=== PATIENT | male | born 1930 | race Caucasian/White ===

== ENCOUNTER 2017-04-04 14:33 | Emergency (ER) | payer MEDICARE ==
[~2017-04-04] VITALS: Ht 160 cm; Wt 63.0 kg
[~2017-04-04 14:33] MED LIST: ASPI325T PO; CENTTAB9 PO; LOSA25TA31 PO; MECL25 PO; OYST500T77 PO; SIMV20 PO; SULF1TAB47 PO; TOPR25TA2 PO
[2017-04-04 14:35] VITALS: BP 145/65; PULSE 62; RESP 15; TEMP 98.4; O2SAT 98
[2017-04-04] MEDS ORDERED: MECL12.574 PO (15:00)
[2017-04-04] MEDS ORDERED: CALC-131 PO (15:00)
[2017-04-04] MEDS ORDERED: MULT-100 PO (15:00)
[2017-04-04] MEDS ORDERED: ASPI81CH3 CHEW (15:00)
[2017-04-04] MEDS ORDERED: METO25TA6 PO (15:00)
[2017-04-04] MEDS ORDERED: LOSA50TA PO (15:00)
[2017-04-04] MEDS ORDERED: BUSP5TAB PO (15:00)
[2017-04-04] MEDS ORDERED: SIMV40TA PO (15:00)
[2017-04-04] MEDS ORDERED: AVOD0.5C PO (15:00)
--- NOTE | 2017-04-04 15:22 | PD ---
HPI Chief Complaint: Eye Problems/Injury Time Seen by Provider: 14:55 (Ame Randall) Time Seen by Provider: 14:55 (Theron Forde MD) Travel History International Travel<30 days: No Contact w/Intl Traveler<30days: No Traveled to known affect area: No (Ame Randall) International Travel<30 days: No Contact w/Intl Traveler<30days: No Traveled to known affect area: No (Theron Forde MD) History of Present Illness HPI 87-year-old male with known history of macular degeneration in the right eye presents to the emergency department requesting resources and information about retinal specialist in the area. Patient reports he recently moved here from the [facility] area where he was treated for his macular degeneration. He reports he received his last ocular injection by his retinal specialist on March 03 and since that injection he has had intermittent floaters in the right eye. Although he reports he had floaters prior to the injections. He reports no change in frequency or quantity of floaters in the last month. He reports no change in vision of the eye. Due to his insurance he was unable to obtain an appointment with a local retinal specialist. He was hoping the emergency department could refer him to someone who would accept his insurance. He denies eye pain, visual loss, or increase in floaters. (Ame Randall) [facility] Past Medical History Coronary Artery Disease: Yes Diabetes: Yes Patient Takes Glucophage: No Diminished Hearing: No Influenza Vaccination: Yes (Ame Randall) Past Surgical History Coronary Artery Bypass Graft: Yes Genitourinary Surgery: Yes (prostate surgery) Valve Replacement: Yes (Ame Randall) Social History Alcohol Use: Yes (1 day) Tobacco Use: No (Ame Randall) Allergies-Medications (Allergen,Severity, Reaction): Coded Allergies: No Known Allergies (Verified , 04/04/17) Reported Meds & Prescriptions Reported Meds & Active Scripts Active Reported Essential One Daily Multi (Multiple Vitamins W/ Calcium) 400 Mcg Tab 1 Tab PO DAILY Calcium & Magnesium (Calcium-Magnesium) 750-465 Mg Tab 1 Tab PO DAILY Buspirone (Buspirone HCl) 5 Mg Tab 5 Mg PO DAILY Aspirin 81 Low Dose (Aspirin) 81 Mg Chew 81 Mg CHEW MO, FR Avodart (Dutasteride) 0.5 Mg Cap 0.5 Mg PO DAILY Meclizine (Meclizine HCl) 12.5 Mg Tab 12.5 Mg PO DIRECTED PRN Losartan (Losartan Potassium) 50 Mg Tab 50 Mg PO DAILY Simvastatin 40 Mg Tab 40 Mg PO HS Metoprolol Succinate ER 24 HR (Metoprolol Succinate) 25 Mg Tab 25 Mg PO HS (Theron Forde MD) Review of Systems Except as stated in HPI: all other systems reviewed are Neg (Ame Randall) Physical Exam Narrative GENERAL: Well-nourished, well-developed patient. SKIN: Focused skin assessment warm/dry. HEAD: Normocephalic. EYES: No scleral icterus. No injection or drainage. PERRL. EOMs intact. Visual last intact. Visual acuity: Left: 20/40, right: 20/50, both: 20/40 NECK: Supple, trachea midline. No JVD or lymphadenopathy. CARDIOVASCULAR: Regular rate and rhythm without murmurs, gallops, or rubs. RESPIRATORY: Breath sounds equal bilaterally. No accessory muscle use. GASTROINTESTINAL: Abdomen soft, non-tender, nondistended. (Ame Randall) Data Data Last Documented VS Vital Signs Date Time Temp Pulse Resp B/P (MAP) Pulse Ox O2 Delivery O2 Flow Rate FiO2 04/04/17 14:35 98.4 62 15 145/65 (91) 98 (Theron Forde MD) MDM Medical Decision Making Medical Screen Exam Complete: Yes Emergency Medical Condition: Yes Differential Diagnosis Macular degeneration, ocular floaters, retinal detachment Narrative Course 87-year-old male with known history of macular degeneration in the right eye presents to the emergency department requesting resources and information about retinal specialist in the area. Patient reports he recently moved here from the [facility] area where he was treated for his macular degeneration. He reports he received his last ocular injection by his retinal specialist on March 03 and since that injection he has had intermittent floaters in the right eye. Although he reports he had floaters prior to the injections. He reports no change in frequency or quantity of floaters in the last month. He reports no change in vision of the eye. Due to his insurance he was unable to obtain an appointment with a local retinal specialist. He was hoping the emergency department could refer him to someone who would except his insurance. Denies exam was performed in the emergency department. Visual acuity R eye 20 /50, L eye 20/40, B eyes 20/40. Visual last intact. Patient was given the name and number to several local retinal specialist. There is no ophthalmology coverage on staff today. The patient is not reporting any change in vision or acute changes to the eye therefore think it reasonable to follow-up with retinal specialist an outpatient basis this week. (Ame Randall) Diagnosis Primary Impression: Macular degeneration (senile) of retina, unspecified Referrals: [facility] DR MARTÍNEZ ROBLERO [facility] Additional Instructions: You were given the name and number to retinal specialist in the area call and set up an appointment for follow-up. If possible schedule a follow-up appointment with your current retinal specialist in [facility]. If he developed new or worsening symptoms return to the emergency department Disposition: 01 DISCHARGE HOME Condition: Stable Ame Randall Apr 04, 2017 15:22 Theron Forde MD Apr 05, 2017 07:55
== END 2017-04-04 15:35 | disposition home or self-care (01) ==
LOC: PHEFT 14:33
DX: H35.30 Unspecified macular degeneration (principal)
CPT/HCPCS: 99282

== ENCOUNTER 2017-06-02 20:52 | Emergency (ER) | payer MEDICARE, OTHER ==
[~2017-06-02] VITALS: Ht 160 cm; Wt 64.0 kg
[~2017-06-02 20:52] MED LIST changes: +ASPI1CHW4 CHEW; -ASPI325T PO; +AVOD0.5C PO; +BUSP5TAB PO; +CALC-131 PO; -CENTTAB9 PO; -LOSA25TA31 PO; +LOSA50TA PO; +MECL12.574 PO; -MECL25 PO; +METO1TAB42 PO; +MULT-100 PO; -OYST500T77 PO; -SIMV20 PO; +SIMV40TA PO; -SULF1TAB47 PO; -TOPR25TA2 PO
[2017-06-02 21:05] VITALS: BP 156/68; PULSE 61; RESP 18; TEMP 98.5; O2SAT 98
[2017-06-02 21:18] VITALS: BP 156/86; PULSE 61; RESP 18; TEMP 98.5; O2SAT 98
--- NOTE | 2017-06-02 21:26 | PD ---
HPI Chief Complaint: Cold / Flu Symptoms Time Seen by Provider: 21:11 Travel History International Travel<30 days: No Contact w/Intl Traveler<30days: No Traveled to known affect area: No History of Present Illness HPI The patient is a 87-year-old male who presents emergency department for postnasal drip, congestion, dry nonproductive cough. The patient states his symptoms started yesterday with a dry nonproductive cough. He also complains of a mild sore throat with postnasal drip and mild congestion. The patient does have a family member who had a recent diagnosis of bronchitis. The patient denies any shortness of breath, wheezing, chest pain, nausea, vomiting, diarrhea, abdominal pain, myalgias, or arthralgias. Symptoms are mild , there are no current alleviating or exacerbating factors. He denies any associated fever, chills, or sweats. The patient's primary physician is Dr. Joiner. The patient did receive his influenza vaccination earlier this year. PFSH Past Medical History Coronary Artery Disease: Yes Diabetes: Yes Diminished Hearing: No Past Surgical History Coronary Artery Bypass Graft: Yes Genitourinary Surgery: Yes (prostate surgery) Valve Replacement: Yes Social History Alcohol Use: Yes (1 day) Tobacco Use: No Allergies-Medications (Allergen,Severity, Reaction): Coded Allergies: No Known Allergies (Verified Adverse Reaction, Unknown, 06/02/17) Reported Meds & Prescriptions Reported Meds & Active Scripts Active Reported Finasteride 5 Mg Tab 5 Mg PO DAILY Do not crush. Alendronate (Alendronate Sodium) 70 Mg Tab 70 Mg PO Q7D Pepcid (Famotidine) 20 Mg Tab 20 Mg PO BID Essential One Daily Multi (Multiple Vitamins W/ Calcium) 400 Mcg Tab 1 Tab PO DAILY Calcium & Magnesium (Calcium-Magnesium) 750-465 Mg Tab 1 Tab PO DAILY Buspirone (Buspirone HCl) 5 Mg Tab 5 Mg PO DAILY Aspirin 81 Low Dose (Aspirin) 81 Mg Chew 81 Mg CHEW MO, Meclizine (Meclizine HCl) 12.5 Mg Tab 12.5 Mg PO DIRECTED PRN Losartan (Losartan Potassium) 50 Mg Tab 50 Mg PO DAILY Simvastatin 40 Mg Tab 40 Mg PO HS Metoprolol Succinate ER 24 HR (Metoprolol Succinate) 25 Mg Tab 25 Mg PO HS Review of Systems Except as stated in HPI: all other systems reviewed are Neg General / Constitutional: No: Fever, Chills HENT: Positive: Sore Throat, Congestion Cardiovascular: No: Chest Pain or Discomfort Respiratory: Positive: Cough, No: Shortness of Breath, Wheezing Gastrointestinal: No: Nausea, Vomiting, Diarrhea, Abdominal Pain Musculoskeletal: No: Myalgias, Arthralgias Physical Exam Narrative GENERAL: Awake, alert, very pleasant 87-year-old male who appears his stated age is in no acute respiratory distress. SKIN: Focused skin assessment warm/dry. HEAD: Atraumatic. Normocephalic. EYES: Pupils equal and round. No scleral icterus. No injection or drainage. ENT: No nasal bleeding or discharge. Oropharynx reveals cobblestoning consistent with postnasal drip but no exudate. TMs are translucent. EACs are clear. NECK: Trachea midline. No JVD. CARDIOVASCULAR: Regular rate and rhythm. Well-healed sternal scar. Holosystolic murmur noted. RESPIRATORY: No accessory muscle use. Clear to auscultation. Breath sounds equal bilaterally. No wheezes, Rales, or rhonchi noted. MUSCULOSKELETAL: No obvious deformities. No clubbing. No cyanosis. No edema. NEUROLOGICAL: Awake and alert. No obvious cranial nerve deficits. Motor grossly within normal limits. Normal speech. PSYCHIATRIC: Appropriate mood and affect; insight and judgment normal. Data Data Last Documented VS Vital Signs Date Time Temp Pulse Resp B/P (MAP) Pulse Ox O2 Delivery O2 Flow Rate FiO2 06/02/17 21:20 18 98 Room Air 06/02/17 21:18 98.5 61 156/86 (109) Orders Orders Ed Discharge Order (06/02/17 21:26) [facility] Medical Decision Making Medical Screen Exam Complete: Yes Emergency Medical Condition: Yes Medical Record Reviewed: Yes Differential Diagnosis Differential diagnosis includes postnasal drip, medication side effect, URI, sinusitis, bronchitis, pneumonia, reactive airway disease. Narrative Course The patient's physical examination is consistent with postnasal drip, most likely secondary to URI. The patient is advised to take a Claritin per day, avoid decongestions. He is also advised to follow-up with his primary physician. Return if symptoms worsen or progress. Diagnosis Primary Impression: Postnasal drip Additional Impression: URI (upper respiratory infection) Qualified Codes: J06.9 - Acute upper respiratory infection, unspecified; B97.89 - Other viral agents as the cause of diseases classified elsewhere Patient Instructions: General Instructions Additional Instructions: Claritin daily. Symptomatic treatment as needed. Follow-up with your primary physician. Return if symptoms worsen or progress. Med/Other Pt SpecificInfo: Prescription(s) given Scripts Loratadine (Claritin) 10 Mg Cap 10 MG PO DAILY for Allergy Management for 14 Days, #14 CAP 0 Refills Prov: Fred Donald MD 06/02/17 Disposition: 01 DISCHARGE HOME Condition: Stable Fred Donald MD Jun 02, 2017 21:26
[2017-06-02] MEDS ORDERED: ALEN1TAB48 PO (21:28)
[2017-06-02] MEDS ORDERED: FAMO1TAB37 PO (21:28)
[2017-06-02] MEDS ORDERED: FINA5TAB2 PO (21:29)
[2017-06-02 21:31] VITALS: BP 121/65
[2017-06-02] MEDS ORDERED: CLAR10CA3 PO (21:33)
[2017-06-03] MEDS ORDERED: BENZ100 PO (17:10)
== END 2017-06-02 21:39 | disposition home or self-care (01) ==
LOC: PHED 20:52
DX: R09.82 Postnasal drip (principal); J06.9 Acute upper respiratory infection, unspecified; B97.89 Other viral agents as the cause of diseases classified elsewhere
CPT/HCPCS: 99282

== ENCOUNTER 2017-06-03 16:19 | Emergency (ER) | payer OTHER ==
[~2017-06-03] VITALS: Ht 160 cm; Wt 63.0 kg
[~2017-06-03 16:19] MED LIST changes: +ALEN1TAB48 PO; -AVOD0.5C PO; +CLAR10CA3 PO; +FAMO1TAB37 PO; +FINA5TAB2 PO
[2017-06-03 16:24] VITALS: BP 131/62; PULSE 86; RESP 16; TEMP 98.1; O2SAT 99
--- NOTE | 2017-06-03 17:09 | PD ---
HPI Chief Complaint: Cold / Flu Symptoms Time Seen by Provider: 16:58 Travel History International Travel<30 days: No Contact w/Intl Traveler<30days: No Traveled to known affect area: No History of Present Illness HPI 87 year old male here for reevaluation of nasal congestion, sore throat, and cough. patient was seen yesterday in the ER for same compliant was diagnosed with URI and discharged home with a prescription for Claritin. Patient is now requesting something for his cough. He reports the cough is nonproductive. He denies fever, chills, chest pain, shortness of breath. He does not endorse worsening symptoms. His symptoms severity is mild. PFSH Past Medical History Cardiovascular Problems: Yes (Valve replacement) Coronary Artery Disease: Yes Diabetes: Yes Patient Takes Glucophage: No Diminished Hearing: No Tetanus Vaccination: > 5 Years Past Surgical History Coronary Artery Bypass Graft: Yes Genitourinary Surgery: Yes (prostate surgery) Valve Replacement: Yes Social History Alcohol Use: Yes (1 a day) Tobacco Use: No Substance Use: No Allergies-Medications (Allergen,Severity, Reaction): Coded Allergies: No Known Allergies (Verified Adverse Reaction, Unknown, 06/03/17) Reported Meds & Prescriptions Reported Meds & Active Scripts Active Claritin (Loratadine) 10 Mg Cap 10 Mg PO DAILY 14 Days Reported Finasteride 5 Mg Tab 5 Mg PO DAILY Do not crush. Alendronate (Alendronate Sodium) 70 Mg Tab 70 Mg PO Q7D Pepcid (Famotidine) 20 Mg Tab 20 Mg PO BID Essential One Daily Multi (Multiple Vitamins W/ Calcium) 400 Mcg Tab 1 Tab PO DAILY Calcium & Magnesium (Calcium-Magnesium) 750-465 Mg Tab 1 Tab PO DAILY Buspirone (Buspirone HCl) 5 Mg Tab 5 Mg PO DAILY Aspirin 81 Low Dose (Aspirin) 81 Mg Chew 81 Mg CHEW MO, FR Meclizine (Meclizine HCl) 12.5 Mg Tab 12.5 Mg PO DIRECTED PRN Losartan (Losartan Potassium) 50 Mg Tab 50 Mg PO DAILY Simvastatin 40 Mg Tab 40 Mg PO HS Metoprolol Succinate ER 24 HR (Metoprolol Succinate) 25 Mg Tab 25 Mg PO HS Review of Systems Except as stated in HPI: all other systems reviewed are Neg General / Constitutional: No: Fever HENT: Positive: Sore Throat, Rhinitis, Congestion, No: Headaches Cardiovascular: No: Chest Pain or Discomfort Respiratory: Positive: Cough Gastrointestinal: No: Abdominal Pain Genitourinary: No: Dysuria Musculoskeletal: No: Pain Physical Exam Narrative GENERAL: Well-nourished, well-developed patient. SKIN: Focused skin assessment warm/dry. HEAD: Normocephalic. EYES: No scleral icterus. No injection or drainage. THROAT: Mild pharyngeal erythema. No tonsillar hypertrophy or exudate. NECK: Supple, trachea midline. No JVD or lymphadenopathy. CARDIOVASCULAR: Regular rate and rhythm without murmurs, gallops, or rubs. RESPIRATORY: Breath sounds equal bilaterally. No accessory muscle use. GASTROINTESTINAL: Abdomen soft, non-tender, nondistended. Data Data Last Documented VS Vital Signs Date Time Temp Pulse Resp B/P (MAP) Pulse Ox O2 Delivery O2 Flow Rate FiO2 06/03/17 16:38 Room Air 06/03/17 16:24 98.1 86 16 131/62 (85) 99 MDM Medical Decision Making Medical Screen Exam Complete: Yes Emergency Medical Condition: Yes Differential Diagnosis URI, laryngitis, bronchitis, pneumonia Narrative Course 87-year-old male here requesting something for his cough. Patient was evaluated yesterday and diagnosed with URI. He reports the symptoms have slightly improved but he developed this dry cough is keeping him up at night. He is requesting something for the cough. Symptom severity is mild. Patient is nontoxic-appearing. His vital signs are stable. His lung sounds are clear. His physical exam is suggestive of a viral URI. Chest x-ray was offered but patient declined. Diagnosis Primary Impression: URI (upper respiratory infection) Qualified Codes: J06.9 - Acute upper respiratory infection, unspecified Referrals: Primary Care Physician Additional Instructions: Take the cough medication as prescribed. Take [id number] Tylenol or Motrin as needed for ear sore throat. Follow-up with her primary care doctor on Tuesday for recheck. Return if he developed new or worsening symptoms. Scripts Benzonatate (Tessalon Perles) 100 Mg Cap 100 MG PO TID Y for COUGH, #15 CAP 0 Refills Prov: Ame Randall 06/03/17 Disposition: 01 DISCHARGE HOME Condition: Stable Ame Randall Jun 03, 2017 17:09
[2017-06-03] MEDS ORDERED: BENZ100 PO (17:10)
== END 2017-06-03 17:20 | disposition home or self-care (01) ==
LOC: PHEFT 16:19
DX: J06.9 Acute upper respiratory infection, unspecified (principal)
CPT/HCPCS: 99283

== ENCOUNTER 2017-06-07 13:54 | Emergency (ER) | payer OTHER ==
[~2017-06-07 13:54] MED LIST changes: +BENZ100 PO
[2017-06-07 13:58] VITALS: BP 157/67; PULSE 76; RESP 20; TEMP 98.2; O2SAT 99
[2017-06-07] MEDS ORDERED: AZIT500T2 PO (14:00)
--- NOTE | 2017-06-07 14:21 | PD ---
HPI Chief Complaint: Respiratory Symptoms Time Seen by Provider: 14:10 Travel History International Travel<30 days: No Contact w/Intl Traveler<30days: No Traveled to known affect area: No History of Present Illness HPI This patient is here for his third visit in the last week for runny nose and congestion and an occasional dry cough. Sometimes he wheezes. No fever. No chest pain. Symptoms severity is mild to moderate. No alleviating factors. He has no history of lung disease and has never been a smoker PFSH Past Medical History Cardiovascular Problems: Yes (Valve replacement) Coronary Artery Disease: Yes Diabetes: Yes Diminished Hearing: No Past Surgical History Coronary Artery Bypass Graft: Yes Genitourinary Surgery: Yes (prostate surgery) Valve Replacement: Yes Social History Alcohol Use: Yes (1 a day) Tobacco Use: No Substance Use: No Allergies-Medications (Allergen,Severity, Reaction): Coded Allergies: No Known Allergies (Verified Adverse Reaction, Unknown, 06/07/17) Reported Meds & Prescriptions Reported Meds & Active Scripts Active Ventolin Hfa 18 GM Inh (Albuterol Sulfate) 90 Mcg/Act Aer 1 Puff INH Q4H PRN Tessalon Perles (Benzonatate) 100 Mg Cap 100 Mg PO TID PRN Claritin (Loratadine) 10 Mg Cap 10 Mg PO DAILY 14 Days Reported Azithromycin 500 Mg Tab 500 Mg PO DAILY Finasteride 5 Mg Tab 5 Mg PO DAILY Do not crush. Alendronate (Alendronate Sodium) 70 Mg Tab 70 Mg PO Q7D Pepcid (Famotidine) 20 Mg Tab 20 Mg PO BID Essential One Daily Multi (Multiple Vitamins W/ Calcium) 400 Mcg Tab 1 Tab PO DAILY Calcium & Magnesium (Calcium-Magnesium) 750-465 Mg Tab 1 Tab PO DAILY Buspirone (Buspirone HCl) 5 Mg Tab 5 Mg PO DAILY Aspirin 81 Low Dose (Aspirin) 81 Mg Chew 81 Mg CHEW MO, FR Meclizine (Meclizine HCl) 12.5 Mg Tab 12.5 Mg PO DIRECTED PRN Losartan (Losartan Potassium) 50 Mg Tab 50 Mg PO DAILY Simvastatin 40 Mg Tab 40 Mg PO HS Metoprolol Succinate ER 24 HR (Metoprolol Succinate) 25 Mg Tab 25 Mg PO HS Review of Systems General / Constitutional: No: Fever Eyes: No: Visual changes HENT: Positive: Congestion, No: Headaches Cardiovascular: No: Chest Pain or Discomfort Respiratory: Positive: Cough, Shortness of Breath, Wheezing Gastrointestinal: No: Abdominal Pain Genitourinary: No: Dysuria Musculoskeletal: No: Pain Skin: No Rash Neurologic: No: Weakness Psychiatric: No: Depression Endocrine: No: Polydipsia Hematologic/Lymphatic: No: Easy Bruising Physical Exam Narrative GENERAL: Well-nourished, well-developed patient in no apparent distress. SKIN: Focused skin assessment reveals no rash and nodules. Skin is Warm and dry. HEAD: Atraumatic. Normocephalic. EYES: Pupils equal and round. No scleral icterus. No injection or drainage. ENT: No nasal bleeding or discharge. Mucous membranes pink and moist. NECK: Trachea midline. No JVD. CARDIOVASCULAR: Regular rate and rhythm. No murmur appreciated. RESPIRATORY: No accessory muscle use. Clear to auscultation. Breath sounds equal bilaterally. GASTROINTESTINAL: Abdomen soft, non-tender, nondistended. Hepatic and splenic margins not palpable. MUSCULOSKELETAL: No obvious deformities. No clubbing. No cyanosis. No edema. NEUROLOGICAL: Awake and alert. No obvious cranial nerve deficits. Motor grossly within normal limits. Normal speech. PSYCHIATRIC: Appropriate mood and affect; insight and judgment normal. Data Data Last Documented VS Vital Signs Date Time Temp Pulse Resp B/P (MAP) Pulse Ox O2 Delivery O2 Flow Rate FiO2 06/07/17 15:05 72 17 119/64 (82) 100 Room Air 06/07/17 13:58 98.2 Orders Orders Chest, Single Ap (06/07/17 ) [facility] Medical Decision Making Medical Screen Exam Complete: Yes Emergency Medical Condition: Yes Medical Record Reviewed: Yes Differential Diagnosis Bronchitis, asthma, pneumonia Narrative Course I have reviewed the patient's electronic medical record. Reviewed his 2 visits from a week ago I reviewed his chest x-ray which shows postsurgical changes without acute infiltrate I prescribed him an albuterol inhaler to use as needed Likely has viral respiratory infection Diagnosis Primary Impression: Acute viral bronchitis Additional Instructions: The patient was advised to follow up with their physician and return if they worsen. Med/Other Pt SpecificInfo: Prescription(s) given Scripts Albuterol 18 GM Inh (Ventolin Hfa 18 GM Inh) 90 Mcg/Act Aer 1 PUFF INH Q4H Y for SHORTNESS OF BREATH, #1 INHALER 0 Refills Prov: Saad Mancini MD 06/07/17 Disposition: 01 DISCHARGE HOME Condition: Stable Saad Mancini MD Jun 07, 2017 14:21
[2017-06-07] MEDS ORDERED: VENTAER INH (14:22)
[2017-06-07 15:05] VITALS: BP 119/64; PULSE 72; RESP 17; O2SAT 100
--- NOTE | 2017-06-07 15:12 | RADRPT ---
EXAM DATE/TIME: 06/07/2017 14:36 [place] COMPARISON: No previous studies available for comparison. INDICATIONS : Cough, short of breath. MEDICAL HISTORY : Cardiovascular disease. SURGICAL HISTORY : CABG. ENCOUNTER: Initial ACUITY: 4 - 6 days PAIN SCORE: 0/10 LOCATION: Bilateral chest FINDINGS: A single view of the chest demonstrates the lungs to be symmetrically aerated without evidence of mas s, infiltrate or effusion. Median sternotomy clips. The cardiomediastinal contours are unremarkable. Osseous structures are intact. CONCLUSION: 1. Post surgical features without acute abnormality. Rashad Alejo MD on June 07, 2017 at 15:09 Board Certified Radiologist. This report was verified electronically.
[2017-06-07 15:28] VITALS: BP 124/78
== END 2017-06-07 15:29 | disposition home or self-care (01) ==
LOC: PHED 13:54
DX: J20.8 Acute bronchitis due to other specified organisms (principal); I25.10 Atherosclerotic heart disease of native coronary artery without angina pectoris; Z95.1 Presence of aortocoronary bypass graft; Z79.2 Long term (current) use of antibiotics; Z79.82 Long term (current) use of aspirin; Z79.899 Other long term (current) drug therapy
CPT/HCPCS: 71010; 99283